=== PATIENT | female | born 1955 | race African-American/Black ===

== ENCOUNTER 2024-06-20 19:36 | Inpatient (IN) | payer MEDICARE, MEDICAID ==
[~2024-06-20] VITALS: Ht 170.2 cm; Wt 86.6 kg
[2024-06-20 19:45] VITALS: O2SAT 98
[2024-06-20] MEDS ORDERED: CEFTRIAXONE 1GM/50ML 50 ML IV ONE (20:45)
[2024-06-20 21:20] LABS: CHLORIDE 108 mEq/L (98-107); POTASSIUM 3.1 mEq/L (3.5-5.1); SODIUM 139 mEq/L (136-145)
[2024-06-20 21:21] LABS: CARBON DIOXIDE 27 mEq/L (21-32)
[2024-06-20 21:22] LABS: CALCIUM 8.3 mg/dL (8.7-10.4)
[2024-06-20 21:26] LABS: CREATININE 0.7 mg/dL (0.6-1.0); GLUCOSE 109 mg/dL (70-105); UREA NITROGEN BLOOD 10 mg/dL (9-23)
[2024-06-20 21:29] LABS: PROTHROMBIN TIME 10.9 sec (9.6-11.0)
[2024-06-20 21:30] LABS: HEMOGLOBIN. 10.6 g/dL (12.0-16.0); MEAN CORPUSCULAR HEMOGLOBIN 31.2 pg (28.0-32.0); MEAN CORPUSCULAR HGB CONC 33.2 g/dL (31.0-37.0); MEAN PLATELET VOLUME 7.2 fl (7.4-10.4); PLATELET 277 x1000/uL (130-400); RED CELL DISTRIBUTION WIDTH 15.6 % (11.6-14.6); WHITE BLOOD COUNT 14.4 x1000/uL (4.5-11.0)
[2024-06-20 21:37] LABS: DIFFERENTIAL COMMENT 1
[2024-06-20] MEDS ORDERED: VANCOMYCIN 1G PREMIX 200 ML IV SCH (21:45)
[2024-06-20 22:40] LABS: ANISOCYTOSIS 1+; NUCLEATED RED BLOOD CELLS 1 /100 WBC; PLATELET ESTIMATE NORMAL
[2024-06-20] MEDS: SODIUM CHLORIDE 0.9% 1,000 ML IV ONE (23:30)
[2024-06-20] MEDS: CEFTRIAXONE 1GM/50ML 50 ML IV NR (23:30)
[2024-06-21] MEDS ORDERED: CLONIDINE 0.1MG TABLET PO PRN (00:30)
[2024-06-21] MEDS ORDERED: ONDANSETRON HCL 4MG/2ML INJ IV PRN (00:30)
[2024-06-21] MEDS ORDERED: IPRATROPIUM/ALBUTEROL 0.5-3(2.5)MG/3ML NEB NEB PRN (00:30)
[2024-06-21] MEDS ORDERED: HYDROCODONE/ACETAMINOPHEN 5/325MG TABLET PO PRN (00:30)
[2024-06-21] MEDS: FUROSEMIDE 40MG/4ML VIAL IVP SCH (00:30)
[2024-06-21] MEDS ORDERED: ACETAMINOPHEN 325MG TABLET PO PRN (00:30)
[2024-06-21] MEDS ORDERED: ZOLPIDEM TARTRATE 5MG TABLET PO PRN (00:30)
[2024-06-21] MEDS: SODIUM CHLORIDE 0.9% 1,000 ML IV ONE (00:37)
[2024-06-21 02:01] VITALS: BP 129/56; PULSE 82; RESP 18; TEMP 37.3076
[2024-06-21] MEDS: VANCOMYCIN 1.5GM/250ML 250 ML IV NR (02:25)
[2024-06-21 04:00] VITALS: BP 129/56; PULSE 90; RESP 18; TEMP 36.61404; O2SAT 98
[2024-06-21 08:00] VITALS: BP 121/61; PULSE 91; RESP 18; TEMP 36.50292; O2SAT 100
[2024-06-21 08:43] LABS: CREATINE KINASE MB FRACTION 2.1 ng/mL (0.5-3.6); TROPONIN I HIGH SENSITIVITY 6 ng/L (3.0-34)
[2024-06-21 08:45] LABS: CREATINE KINASE 184 IU/L (34-145)
[2024-06-21] MEDS: ENOXAPARIN 30MG/0.3ML SYR SUBCUT SCH (10:50)
[2024-06-21] MEDS ORDERED: VANCOMYCIN 1GM/200ML PMX (BAXTER) IV SCH (11:00)
[2024-06-21 12:00] VITALS: BP 115/59; PULSE 90; RESP 18; TEMP 36.33624; O2SAT 100
[2024-06-21] MEDS: VANCOMYCIN 1GM/200ML PMX (BAXTER) IV SCH (12:00)
[2024-06-21 16:00] VITALS: BP 119/56; PULSE 85; RESP 18; TEMP 36.114; O2SAT 99
[2024-06-21 17:21] LABS: CREATINE KINASE MB FRACTION 1.6 ng/mL (0.5-3.6)
[2024-06-21 20:00] VITALS: BP 120/68; PULSE 87; RESP 18; TEMP 36.78072
[2024-06-21] MEDS ORDERED: CEFTRIAXONE 1GM/50ML 50 ML IV SCH (20:00)
[2024-06-21] MEDS: CEFTRIAXONE 1GM/50ML 50 ML IV SCH (22:24)
[2024-06-22] VITALS: BP 114/67; PULSE 90; RESP 18; TEMP 36.55848
[2024-06-22 04:00] VITALS: BP 118/67; PULSE 85; RESP 18; TEMP 36.3918
[2024-06-22 08:00] VITALS: BP 114/53; PULSE 86; RESP 18; TEMP 36.72516; O2SAT 98
[2024-06-22 12:00] VITALS: BP 118/56; PULSE 82; RESP 20; TEMP 36.72516; O2SAT 97
[2024-06-22 16:00] VITALS: BP 120/78; PULSE 80; RESP 18; TEMP 36.44736; O2SAT 96
[2024-06-22 17:08] LABS: EOSINOPHILS % 7.7 % (0.0-5.0); HEMATOCRIT. 28.6 % (36.0-48.0); HEMOGLOBIN. 9.4 g/dL (12.0-16.0); LYMPHOCYTES % 19.4 % (20.0-50.0); MEAN CORPUSCULAR HEMOGLOBIN 30.9 pg (28.0-32.0); MEAN CORPUSCULAR HGB CONC 32.9 g/dL (31.0-37.0); MEAN PLATELET VOLUME 7.7 fl (7.4-10.4); MONOCYTES % 9.7 % (2.0-8.0); NEUTROPHILS % 62.2 % (40.0-76.0); PLATELET 269 x1000/uL (130-400); RED BLOOD CELL COUNT 3.04 mill/uL (4.2-5.4); RED CELL DISTRIBUTION WIDTH 15.4 % (11.6-14.6)
[2024-06-22 17:20] LABS: CHLORIDE 110 mEq/L (98-107); POTASSIUM 3.1 mEq/L (3.5-5.1); SODIUM 141 mEq/L (136-145)
[2024-06-22 17:21] LABS: CALCIUM 7.9 mg/dL (8.7-10.4); CARBON DIOXIDE 25 mEq/L (21-32)
[2024-06-22 17:26] LABS: CREATININE 0.4 mg/dL (0.6-1.0); GLUCOSE 106 mg/dL (70-105)
[2024-06-22 17:28] LABS: UREA NITROGEN BLOOD < 5 mg/dL (9-23)
[2024-06-22 20:00] VITALS: BP 108/61; PULSE 85; RESP 18; TEMP 36.6696; O2SAT 100
[2024-06-23] VITALS: BP 115/59; PULSE 82; RESP 18; TEMP 36.6696; O2SAT 100
[2024-06-23 04:00] VITALS: BP 110/59; PULSE 81; RESP 18; TEMP 36.6696; O2SAT 99
[2024-06-23 06:42] LABS: CHLORIDE 110 mEq/L (98-107); POTASSIUM 3.2 mEq/L (3.5-5.1); SODIUM 141 mEq/L (136-145)
[2024-06-23 06:43] LABS: CALCIUM 7.6 mg/dL (8.7-10.4); CARBON DIOXIDE 24 mEq/L (21-32)
[2024-06-23 06:48] LABS: CREATININE 0.5 mg/dL (0.6-1.0); GLUCOSE 94 mg/dL (70-105); UREA NITROGEN BLOOD 6 mg/dL (9-23)
[2024-06-23 07:47] LABS: BASOPHILS % 0.7 % (0.0-2.0); EOSINOPHILS % 6.8 % (0.0-5.0); HEMATOCRIT. 28.3 % (36.0-48.0); HEMOGLOBIN. 9.4 g/dL (12.0-16.0); LYMPHOCYTES % 18.7 % (20.0-50.0); MEAN CORPUSCULAR HEMOGLOBIN 30.7 pg (28.0-32.0); MEAN CORPUSCULAR HGB CONC 33.1 g/dL (31.0-37.0); MEAN CORPUSCULAR VOLUME 92.8 fL (81.0-99.0); MEAN PLATELET VOLUME 7.9 fl (7.4-10.4); MONOCYTES % 10.7 % (2.0-8.0); NEUTROPHILS % 63.1 % (40.0-76.0); PLATELET 280 x1000/uL (130-400); RED BLOOD CELL COUNT 3.05 mill/uL (4.2-5.4); RED CELL DISTRIBUTION WIDTH 15.1 % (11.6-14.6); WHITE BLOOD COUNT 4.8 x1000/uL (4.5-11.0)
[2024-06-23 08:00] VITALS: BP 118/64; PULSE 89; RESP 20; TEMP 36.44736; O2SAT 97
[2024-06-23] MEDS ORDERED: NALOXONE HCL 0.4MG/ML VIAL IV PRN (10:30)
[2024-06-23 12:00] VITALS: BP 108/56; PULSE 86; RESP 18; TEMP 36.6696; O2SAT 98
[2024-06-23] MEDS: POTASSIUM CHLORIDE 20MEQ/PACKET PO NR (13:14)
[2024-06-23 16:00] VITALS: BP 119/49; PULSE 83; RESP 18; TEMP 36.44736; O2SAT 98
[2024-06-23 20:00] VITALS: BP 114/55; PULSE 88; RESP 18; TEMP 37.11408; O2SAT 100
[2024-06-24] VITALS: BP 103/56; PULSE 88; RESP 18; TEMP 36.33624; O2SAT 100
[2024-06-24 04:00] VITALS: BP 108/48; PULSE 81; RESP 18; TEMP 36.22512; O2SAT 100
[2024-06-24 06:57] LABS: CHLORIDE 109 mEq/L (98-107); POTASSIUM 3.7 mEq/L (3.5-5.1); SODIUM 140 mEq/L (136-145)
[2024-06-24 06:58] LABS: CARBON DIOXIDE 25 mEq/L (21-32)
[2024-06-24 06:59] LABS: CALCIUM 7.9 mg/dL (8.7-10.4)
[2024-06-24 07:03] LABS: CREATININE 0.5 mg/dL (0.6-1.0); GLUCOSE 84 mg/dL (70-105)
[2024-06-24 08:00] VITALS: BP 110/67; PULSE 82; RESP 19; TEMP 36.33624; O2SAT 100
[2024-06-24 09:12] LABS: UREA NITROGEN BLOOD < 5 mg/dL (9-23)
[2024-06-24 12:00] VITALS: BP 96/57; PULSE 70; RESP 18; TEMP 36.114; O2SAT 99
[2024-06-24 16:00] VITALS: BP 119/62; PULSE 87; RESP 18; TEMP 36.22512; O2SAT 99
[2024-06-24 20:00] VITALS: BP 104/54; PULSE 86; RESP 19; TEMP 36.33624; O2SAT 99
[2024-06-24] MEDS ORDERED: VANCOMYCIN 750MG PREMIX 150 ML IV SCH (22:00)
[2024-06-25] VITALS: BP 118/55; PULSE 85; RESP 20; TEMP 36.3918; O2SAT 100
[2024-06-25 04:00] VITALS: BP 120/61; PULSE 84; RESP 19; TEMP 36.28068; O2SAT 99
[2024-06-25 08:00] VITALS: BP 123/75; PULSE 79; RESP 20; TEMP 36.61404; O2SAT 97
[2024-06-25] MEDS ORDERED: ATOR40TA70 MT (10:42)
[2024-06-25] MEDS ORDERED: FURO40TA5 MT (10:42)
[2024-06-25] MEDS ORDERED: CARB200T6 MT (10:42)
[2024-06-25 12:00] VITALS: BP 108/62; PULSE 76; RESP 20; TEMP 37.00296; O2SAT 95
[2024-06-25 16:00] VITALS: BP 100/59; PULSE 80; RESP 18; TEMP 37.11408; O2SAT 96
[2024-06-25] MEDS: CARBAMAZEPINE 200MG TABLET PO SCH (17:40)
[2024-06-25 20:00] VITALS: BP 119/63; PULSE 85; RESP 19; TEMP 36.114; O2SAT 99
[2024-06-25] MEDS: ATORVASTATIN CALCIUM 40MG TABLET PO SCH (20:27)
[2024-06-26] VITALS: BP 126/71; PULSE 86; RESP 19; TEMP 36.114; O2SAT 99
[2024-06-26 04:00] VITALS: BP 130/69; PULSE 90; RESP 20; TEMP 36.22512; O2SAT 98
[2024-06-26 06:54] LABS: CARBON DIOXIDE 26 mEq/L (21-32); CHLORIDE 108 mEq/L (98-107); POTASSIUM 3.9 mEq/L (3.5-5.1); SODIUM 139 mEq/L (136-145)
[2024-06-26 06:55] LABS: CALCIUM 8.2 mg/dL (8.7-10.4)
[2024-06-26 06:59] LABS: CREATININE 0.5 mg/dL (0.6-1.0)
[2024-06-26 07:00] LABS: GLUCOSE 80 mg/dL (70-105); UREA NITROGEN BLOOD 8 mg/dL (9-23)
[2024-06-26 07:13] LABS: BASOPHILS % 0.9 % (0.0-2.0); HEMATOCRIT. 31.2 % (36.0-48.0); HEMOGLOBIN. 10.2 g/dL (12.0-16.0); LYMPHOCYTES % 25.6 % (20.0-50.0); MEAN CORPUSCULAR HEMOGLOBIN 30.7 pg (28.0-32.0); MEAN CORPUSCULAR HGB CONC 32.7 g/dL (31.0-37.0); MEAN CORPUSCULAR VOLUME 93.7 fL (81.0-99.0); MONOCYTES % 8.3 % (2.0-8.0); NEUTROPHILS % 59.2 % (40.0-76.0); PLATELET 366 x1000/uL (130-400); RED BLOOD CELL COUNT 3.33 mill/uL (4.2-5.4); RED CELL DISTRIBUTION WIDTH 15.6 % (11.6-14.6); WHITE BLOOD COUNT 5.5 x1000/uL (4.5-11.0)
[2024-06-26 08:27] VITALS: BP 105/63; PULSE 78; RESP 18; TEMP 36.55848; O2SAT 96
[2024-06-26] MEDS: FUROSEMIDE 40MG TABLET PO SCH ×2 (10:12→17:38)
[2024-06-26 12:00] VITALS: BP 115/65; PULSE 86; RESP 17; TEMP 35.39172; O2SAT 99
[2024-06-26 16:00] VITALS: BP 139/84; PULSE 78; RESP 18; TEMP 35.50284; O2SAT 97
[2024-06-26 20:00] VITALS: BP 104/59; PULSE 91; RESP 17; TEMP 35.89176; O2SAT 98
[2024-06-27] VITALS: BP 116/62; PULSE 86; RESP 19; TEMP 35.78064; O2SAT 98
[2024-06-27 04:00] VITALS: BP 112/59; PULSE 81; RESP 19; TEMP 35.89176; O2SAT 99
[2024-06-27 08:00] VITALS: BP 110/60; PULSE 82; RESP 19; TEMP 35.94732; O2SAT 97
[2024-06-27] MEDS: ENOXAPARIN 40MG/0.4ML SYR SUBCUT SCH (09:49)
[2024-06-27 16:00] VITALS: BP 98/54; PULSE 89; RESP 20; TEMP 37.00296; O2SAT 98
== END 2024-06-27 20:08 | disposition hospice, home (50) | DRG 720 ==
LOC: ER 19:36 → 6EST 21:46 → EDBEDREQ 21:52 → EDBEDREQTM 21:52 → 7WST 06-21 01:34 → 6EST 06-26 11:32
PROVIDERS: ADMIT Internal Medicine; ATTEND Internal Medicine
PROC: 0HBRXZZ Excision of Toe Nail, External Approach (ICD-10-PCS; principal; 2024-06-26)
DX: A41.9 Sepsis, unspecified organism (principal); I83.018 Varicose veins of right lower extremity with ulcer other part of lower leg; I83.028 Varicose veins of left lower extremity with ulcer other part of lower leg; L03.115 Cellulitis of right lower limb; L03.116 Cellulitis of left lower limb; D64.9 Anemia, unspecified; S81.802A Unspecified open wound, left lower leg, initial encounter; E87.6 Hypokalemia; L97.818 Non-pressure chronic ulcer of other part of right lower leg with other specified severity; I89.0 Lymphedema, not elsewhere classified; L97.828 Non-pressure chronic ulcer of other part of left lower leg with other specified severity; G40.909 Epilepsy, unspecified, not intractable, without status epilepticus; L60.3 Nail dystrophy; M85.80 Other specified disorders of bone density and structure, unspecified site
CPT/HCPCS: 36415; 71045; 80048; 80202; 82550; 82553; 83605; 84145; 84484; 85025; 93005; 93306; 93970; 97022; 97161; 99285; J0696; J1650; J1940; J3370; J7030